=== PATIENT | male | born 1990 | race Caucasian/White ===

== ENCOUNTER 2024-10-28 11:52 | Emergency (ER) | payer SELFPAY ==
--- NOTE | ~2024-10-28 | CT_ITS ---
Non-contrast CT scan of the Abdomen and Pelvis Clinical indication: Abdominal pain Technique: 2.5 mm axial scans were obtained through the abdomen and pelvis without intravenous or or al contrast. Dose reduction technique was used on this scan by utilizing automated exposure control a nd iterative reconstruction technique. The dose-length product (DLP) was 792.76 mGy-cm. Findings: Images through the lung bases reveal no abnormalities. There is no evidence of renal or ureteral calculi. The kidneys and the ureters are nondilated. There is marked diffuse fatty infiltration of the liver. The spleen, pancreas, gallbladder, and adren als appear normal. There is no aortic aneurysm. There is no evidence of bowel obstruction. Images through the pelvis were performed. There is no evidence of ascites or lymphadenopathy. Urinary bladder unremarkable. No pelvic mass. Impression: No acute abnormality. Marked diffuse fatty infiltration of liver. Reviewed, dictated and finalized at [facility]. Impression: No acute abnormality. Marked diffuse fatty infiltration of liver.
--- NOTE | ~2024-10-28 | XR_ITS ---
Clinical Indication: Alcohol withdrawal, pain PA and lateral views of the chest: Comparison: None Findings: The lungs are clear, without evidence of focal consolidation or pleural effusion. Cardiome diastinal silhouette is within normal limits. Bones and soft tissues are unremarkable. Impression: Normal chest. Reviewed, dictated and finalized at [facility]. Impression: Normal chest.
[2024-10-28 11:53] VITALS: BP 156/110; PULSE 88; RESP 18; TEMP 36.7; O2SAT 97
--- NOTE | 2024-10-28 12:23 | ECG_ITS ---
Test Date: 2024-10-28 12:45:01 Measurements Intervals [place] Rate: 90 P: 26 VT: 138 QRS: 55 QRSD: 94 T: 31 QT: 347 QTc: 426 Interpretive Statements SINUS RHYTHM POSSIBLE LEFT ATRIAL ENLARGEMENT BASELINE ARTIFACT- I, II, III, AVR, AVL, AVF, V2-V6 BORDERLINE ECG No previous ECG available for comparison Electronically Signed On 10-28-2024 12:50:07 CDT by Caio Louis D.O.
--- NOTE | 2024-10-28 12:27 | ED_ITS ---
HPI - Abdominal Pain General Chief Complaint: Abdominal Pain Stated Complaint: dental pain Time Seen by Provider: 10/28/24 11:55 Source: patient and family Mode of arrival: ambulatory Limitations: no limitations History of Present Illness HPI narrative: Patient is a 34-year-old male with day 3 of no alcohol and concerned about his health and tremors that he was having yesterday. He is not wanting detox but he is wanting a medical workup for safety. His mother is present. He has weaned down from the alcohol over the past week and stopped 3 days ago. He is having abdominal pain. Some dental complaints as well. MD elicited complaint: abdominal pain Pertinent past history: other ( alcoholism) Onset (ago): day(s) ( 3) Pain Consistency: intermittent Location: diffuse Severity: moderate Pain scale (0-10): 5 Quality: cramping and sharp Radiation: none Migration to: no migration Exacerbating factors: nothing Relieving factors: nothing Context: confirms other ( patient is on day 3 of stopping alcohol and concern for his health and desired a workup at this time. He is having abdominal pains.) Associated symptoms: other ( Tremors at times and occasional flash of light with insomnia) Treatments prior to arrival: other ( none) Related Data Allergies Allergy/AdvReac Type Severity Reaction Status Date / Time No Known Allergies Allergy Verified 10/28/24 12:21 Review of Systems 2 Review of Systems: All systems reviewed & are unremarkable except as noted in HPI and below Constitutional: Constitutional: Reports no additional constitutional complaints Eyes: Eyes: Reports no additional eye complaints ENT: Reports system reviewed and no additional complaints, except as documented Cardiovascular: Cardiovascular: Reports no additional cardiovascular complaints Respiratory: Respiratory: Reports no additional respiratory complaints Gastrointestinal: Gastrointestinal: Reports no additional gastrointestinal complaints Genitourinary: Genitourinary: Reports no additional male genitourinary complaints Musculoskeletal: Musculoskeletal: Reports no additional musculoskeletal complaints Integumentary/Breasts: Skin/Breast: Reports system reviewed and no additional complaints, except as docu Neurologic: Reports system reviewed and no additional complaints, except as documented Psychiatric: Psychiatric: Reports no additional psychiatric complaints Endocrine: Endocrine: Reports no additional endocrine complaints Hematologic/Lymphatic: Hematologic/Lymphatic: Reports no additional hematologic/lymphatic complaints Allergic/Immunologic: Allergic/Immunologic: Reports no additional allergic/immunologic complaints Exam 2 Const: General: healthy appearing and no acute distress Nutritional Appearance: well nourished Orientation/consciousness: patient oriented x3 Limitations: no limitations Other: no signs of tremors or DTs at this time; no hallucinations; no suicide or homicide ideation; no seizures; patient is anxious HENMT: Head: normal to inspection Ears: external ears normal F eliza/Nose/Sinus: Normal external nose present Eyes: Conjunctivae: conjunctivae normal Pupils: Equal, round and reactive pupils present EOM: EOMs intact bilaterally Neck: Neck: normal visual inspection Chest: Chest palpation & inspection: normal inspection of the chest Resp: Effort & Inspection: normal respiratory effort and not labored A uscultation: clear to auscultation bilaterally and no crackles Cardio: Rate: regular rate Rhythm: regular rhythm Heart sounds: no murmurs GI: Inspection: non-distended GI Palp: Yes Soft to palpation, Yes Tenderness to palpation present (GI) ( diffuse), No Guarding due to palpation present (GI), No Rigid due to palpation, No Hernia present, No Palpable mass present and No Rebound tenderness present Auscultation: normal bowel sounds : General: Yes bladder normal to palpation Back/Spine/Pelvis: Back: no CVA tenderness Skin: General skin exam: normal color Rashes: no rashes Wounds: no wounds Neuro: General: patient oriented x3 Cranial nerves: Yes Nystagmus not present Speech: normal speech Gait exam (Neuro): Normal gait present O ther: A&O x4, fast negative, NIH 0, GCS 15, no signs of DTs Extrem: General: normal to inspection Psych: Mental Status: mental status grossly normal Affect: normal affect Attitude: cooperative Course Vital Signs Vital signs: Vital Signs Temperature 36.7 C 10/28/24 11:53 Pulse Rate 88 10/28/24 11:53 Respiratory Rate 18 10/28/24 11:53 Blood Pressure 156/110 H 10/28/24 11:53 Pulse Oximetry 97 10/28/24 11:53 Oxygen Delivery Room Air 10/28/24 11:53 Temperature 36.7 C 10/28/24 11:53 Pulse Rate 88 10/28/24 11:53 Respiratory Rate 18 10/28/24 11:53 Blood Pressure 156/110 H 10/28/24 11:53 Pulse Oximetry 97 10/28/24 11:53 Oxygen Delivery Room Air 10/28/24 11:53 MDM - Abdominal Pain MDM Narrative Medical decision making narrative: patient is a 34-year-old male with alcohol detox day 3 on his own and concerns for his general health with some abdominal pains. Will do a workup at this time for reassurance. I will give him Ativan for anxiety. Lab Data Attestation: I reviewed the patient's lab results. 10/28/24 12:47 10/28/24 12:47 Labs: Lab Results 10/28/24 10/28/24 Range/Units 12:26 12:47 WBC 7.7 (4.8-10.8) K/mm3 RBC 3.89 L (4.70-6.10) M/mm3 Hgb 15.1 (14.0-18.0) g/dL Hct 41.7 (40.0-54.0) % MCV 107.2 H (78.0-102.0) fL MCH 38.8 H (27.0-31.0) pg MCHC 36.2 H (32-36) g/dL RDW 13.1 (11.6-14.4) % Plt Count 178 (150-420) K/mm3 MPV 10.9 (8.7-11.0) fl Immature Gran % (Auto) 0.6 H (0.0-0.0) % Neut % (Auto) 66.5 (50.0-70.0) % Lymph % (Auto) 18.5 (18.0-42.0) % [place] % (Auto) 14.1 H (2.0-11.0) % Eos % (Auto) 0.0 L (1.0-6.0) % Baso % (Auto) 0.3 (0.0-1.0) % Lymph # (Auto) 1.43 (1.10-4.50) K/mm3 [place] # (Auto) 1.09 H (0.10-0.90) K/mm3 Eos # (Auto) 0.00 L (0.02-0.50) K/mm3 Baso # (Auto) 0.02 (0.00-0.10) K/mm3 Abs Immat Gran (auto) 0.05 H (0.00-0.00) K/mm3 Absolute Neuts (auto) 5.13 (1.70-7.20) K/mm3 Absolute Nucleated RBC 0.00 (0.00-0.00) K/mm3 Nucleated RBC % 0.0 (0-0.0) % Sodium 129 L (137-145) mmol/L Potassium 3.3 L (3.4-5.0) mmol/L Chloride 90 L (98-107) mmol/L Carbon Dioxide 25 (22-30) mmol/L Anion Gap 14 H (4-12) mmol/L BUN 7 L (9-20) mg/dL Creatinine 0.84 (0.7-1.3) mg/dL Estim Creat Clear Calc 119 ml/min Estimated GFR > 60 (59 - ) Glucose 143 H (65-110) mg/dL Calculated Osmolality 268 L (285-295) mOsm/kg Lactic Acid 1.6 (0.4-2.0) mmol/L Calcium 9.8 (8.4-10.2) mg/dL Magnesium 2.0 (1.6-2.3) mg/dL Total Bilirubin 9.4 H (0.2-1.3) mg/dL AST 302 H (17-59) U/L ALT 219 H (6-50) U/L Alkaline Phosphatase 135 H (38-126) U/L Troponin I < 0.012 (0.000-0.034) ng/mL Total Protein 8.6 H (6.3-8.2) g/dL Albumin 4.9 (3.5-5.1) g/dL Lipase 181 (23-300) U/L Urine Color Dark yellow (Yellow) Urine Appearance Clear (Clear) Urine pH 7.0 (5.0-8.0) Ur Specific [place] <= 1.005 L (1.010-1.020) Urine Protein Negative (Negative) Urine Glucose (UA) Negative (Negative) Urine Ketones 1+ H (Negative) Ur Blood (Man) Negative (Negative) Urine Nitrate Negative (Negative) Urine Bilirubin 2+ H (Negative) Urine Urobilinogen 4.0 H (0.2-1.0) mg/dL Leukocyte Esterase Rfl Negative (Negative) BEBETO/UL Urine RBC None seen (0-2) /hpf Urine WBC None seen (0-3) /hpf Urine Bacteria Trace (None) /hpf Urine Opiates Screen Negative (Negative) Urine Methadone Screen Negative (Negative) Ur Barbiturates Screen Negative (Negative) Ur Phencyclidine Scrn Negative (Negative) Ur Amphetamine Screen Negative (Negative) U Benzodiazepines Scrn Positive A (Negative) Urine Cocaine Screen Negative (Negative) U Cannabinoids Screen Positive A (Negative) Ethyl Alcohol < 10 (<10) mg/dL Imaging Data Attestation: I personally reviewed and interpreted this imaging study as follows: Radiologist's impression: ITS Impressions Abdomen/Pelvis CT 10/28/24 13:34 Impression: No acute abnormality. Marked diffuse fatty infiltration of liver. Chest X-Ray 10/28/24 13:35 Impression: Normal chest. ECG Data EKG #1: Attestation: I personally reviewed and interpreted this ECG as follows: ECG completion date: 10/28/24 ECG completion time: 12:51 normal rate, sinus rhythm, no ectopy, non-specific ST changes, normal QRS, normal QT, NL axis and no acute changes Discharge Plan Discharge Clinical Impression: Alcoholism, Abnormal transaminases Patient Disposition: Home Condition: Improved Instructions: Alcohol Withdrawal (DC), Alcohol Use Disorder (ED) Patient Language: [place] Prescriptions: New lorazepam [Ativan] 0.5 mg tablet 0.5 mg PO TID PRN (Reason: alcohol withdrawal) Qty: 20 0RF Follow-up/Referrals: UNKNOWN,DOCTOR [Non-Staff] - Time of Disposition: 13:43
[2024-10-28 12:38] LABS: Add Urine Microscopic? YES; Appearance Urine Clear (Clear); Bilirubin Urine 2+ (Negative); Blood Urine Negative (Negative); Color Urine Dark Yellow (Yellow); Glucose Urine UA Negative (Negative); Ketones Urine 1+ (Negative); Leukocyte Esterase Ur Negative LEU/UL (Negative); Nitrate Urine Negative (Negative); Protein Urine Negative (Negative); Specific Grav Ur <= 1.005 (1.010-1.020)
[2024-10-28] MEDS: LORazepam (*CRX) 1 MG TABLET PO (12:41)
[2024-10-28 12:54] LABS: Basophils Absolute Auto 0.02 K/mm3 (0.00-0.10); Basophils Percent Auto 0.3 % (0.0-1.0); Hematocrit 41.7 % (40.0-54.0); Hemoglobin 15.1 g/dL (14.0-18.0); Immature Granulocyte Absolute 0.05 K/mm3 (0.00-0.00); Immature Granulocyte Percent A 0.6 % (0.0-0.0); Lymphocytes Absolute Auto 1.43 K/mm3 (1.10-4.50); Lymphocytes Percent Auto 18.5 % (18.0-42.0); Mean Corpuscular HGB Conc 36.2 g/dL (32-36); Mean Corpuscular Hemoglobin 38.8 pg (27.0-31.0); Mean Corpuscular Volume 107.2 fL (78.0-102.0); Mean Platelet Volume 10.9 fl (8.7-11.0); Monocytes Absolute Auto 1.09 K/mm3 (0.10-0.90); Monocytes Percent Auto 14.1 % (2.0-11.0); Neutrophils Absolute Auto 5.13 K/mm3 (1.70-7.20); Neutrophils Percent Auto 66.5 % (50.0-70.0); Platelet Count Result 178 K/mm3 (150-420); Red Blood Count 3.89 M/mm3 (4.70-6.10); Red Cell Distribution Width 13.1 % (11.6-14.4); White Blood Count 7.7 K/mm3 (4.8-10.8)
--- OUTSIDE RECORDS SUMMARY | 2024-10-28 13:01 | XMS_ITS | Clinical Summary ---
Author Organization [facility] [place] Address [address] [place] [address] Phone Care Team Providers Care Warehouse Record Clerk Name Role Phone Provider, None Primary Care Provider Unavailabl e Allergies No known active allergies Medications No known medications Active Problems No known active problems Encounters Date Type Department Care Team Description 10/10/2024 [facility] [address] [place] [id number] Navigator, Digital [facility] Encounter for health-related screening (Primary Dx) from Last 3 Months Immunizations Immunization Administration Dates Next Due DTAP VACCINE 01/02/1996, 2,04/11/1991,1990,1990 Hepatitis A, Pediatric, Unsp ecified Formulation 04/09/2007 Hepatitis B Vaccine, Pediatric/adolescent 02/16/2000,02/21/1999,10/01/1998 Hib Vaccine,unspecified Formulation 12/20,04/11/1991,02/11/1991,1990 Inactivated Polio Vaccine 01/02/1996,,02/11/1991,1990 MMR Vaccine 01/02/1996,01/12/1992 TD VACCINE 01/02/2005 Social History Tobacco Use Types Packs/Day Years Used Date Smoking Tobacco: Never Smokeless Tobacco: Never Tobacco Cessation:Counseling Given: Not Answered Alcohol Use Standard Drinks/Week Comments Not Currently 0 (1 standard drink = 0.6 oz pur e alcohol) Sex and Gender Information Value Date Recorded Sex Assigned at Not on file Legal Sex Male 3:27 PM CDT Gender Identity Not on file Sexual Orientation Not on file Last Filed Vital Signs Vital Sign Reading Time Taken Comments Blood Pressure 130/89 10/10/2024 4:57 PM CDT Pulse 79 10/10/2024 4:57 PM CDT Temperature 36.7 C (98 F) 12/26/2023 4:05 PM CDT Respiratory Rate 18 12/26/2023 4:05 PM CDT Oxygen Saturation 93% 10/10/2024 4:57 PM CDT Inhaled Oxygen Concentration - - Weight 95.3 kg (210 lb) 12/26/2023 4:05 PM CDT Height - - Body Mass Index - - Plan of Treatment Health Maintenance Due Date Last Done Comments Hepatitis C Virus (HCV) Screening 1990 DTaP/Tdap/Td Immunization (6 - Tdap) 01/03/2005 01/02/2005, 01/02/1996, 04/19/1992, Additional history exists SARS-COV-2 Immunization ( season) 2024 Influenza Immunization (Season Ended) 2025 Respiratory Syncytial Virus (RSV) Immunization (Adult) (1 - 1-dose 75+ series) 2065 Hepatitis B Immunization Completed 000, 02/21/1999, 10/01/1998 Human Papillomavirus (HPV) Immunization Aged Out No longer eligible based on patient's age to complete this topic Meningococcal Immunization (ACWY) Aged Out No longer eligible based on patient's age to complete this topic Pneumococcal Immunization Combined Aged Out No longer eligible based on patient's age to complete this topic Rotavirus Immunization Aged Out No lo nger eligible based on patient's age to complete this topic Procedures Procedure Name Priority Date/Time Associated Diagnosis Comments POCT GLUCOSE ONCALL Routine 10/10/2024 2 :45 PM CDT Encounter for health-related screening POCT CHOLESTEROL ONCALL Routine 10/10/2024 2:45 PM CDT Encounter for health-related screening from Last 3 Months Results * (ABNORMAL) POCT GLUCOSE ONCALL (10/10/2024 2:45 PM CDT) GLUCOSE 121(A) 70 - 99 mg/dL Comment:Non Fasting 10/10/2024 2:45 PM CDT Teo Echevarria DO POINT OF CARE TESTING ([facility]OUSSARD) Final Result * POCT CHOLESTEROL ONCALL (10/10/2024 2:45 PM CDT) Total Cholesterol 171 0 - 200 mg/dL Comment:Non Fasting 10/10/2024 2:45 PM CDT Teo John Swathi DO POINT OF CARE TESTING ([facility]OUSS[facility]) Final Result from Last 3 Months Insurance [facility] Care Teams Warehouse Record Clerk Relationship Specialty Start Date End Date Provider, None [place] PCP - General 12/26/23
[2024-10-28 13:02] LABS: Bacteria Urine Trace /hpf; RBC Urine None seen /hpf (0-2); WBC Urine None seen /hpf (0-3)
[2024-10-28 13:07] LABS: Alanine Aminotransferase 219 U/L (6-50); Albumin Level 4.9 g/dL (3.5-5.1); Alkaline Phosphatase 135 U/L (38-126); Anion Gap 14 mmol/L (4-12); Aspartate Amino Transferase 302 U/L (17-59); Bilirubin,Total 9.4 mg/dL (0.2-1.3); Blood Urea Nitrogen 7 mg/dL (9-20); Calcium 9.8 mg/dL (8.4-10.2); Carbon Dioxide 25 mmol/L (22-30); Chloride 90 mmol/L (98-107); Estimated CRCL calculation 119 ml/min; Estimated Glomerular Filt Rate > 60; Glucose 143 mg/dL (65-110); Osmolality Calculated 268 mOsm/kg (285-295); Potassium 3.3 mmol/L (3.4-5.0); Sodium 129 mmol/L (137-145); Total Protein 8.6 g/dL (6.3-8.2)
[2024-10-28 13:08] LABS: Amphetamine Screen Urine Negative (Negative); Barbiturate Screen Urine Negative (Negative); Benzodiazepines Screen Urine Positive (Negative); Cannabinoid Screen Urine Positive (Negative); Cocaine Screen Urine Negative (Negative); Methadone Screen Urine Negative (Negative); Opiate Screen Urine Negative (Negative); Phencyclidine Screen Urine Negative (Negative)
[2024-10-28 13:08] LABS: Ethanol < 10 mg/dL (<10); Lactic Acid Reflex 1.6 mmol/L (0.4-2.0)
[2024-10-28 13:23] LABS: Lipase 181 U/L (23-300); Troponin I < 0.012 ng/mL (0.000-0.034)
[2024-10-28 13:53] VITALS: BP 138/109; PULSE 89; RESP 16; TEMP 37; O2SAT 99
[2024-10-28] MEDS: POTASSIUM CHLORIDE 20 MEQ ER TABLET PO (14:05)
== END 2024-10-28 14:12 | disposition home or self-care (01) ==
PROVIDERS: Emergency Provider Emergency Medicine; PCP Internal Medicine
DX: F10.20 Alcohol dependence, uncomplicated (principal); R74.01 Elevation of levels of liver transaminase levels; Y90.0 Blood alcohol level of less than 20 mg/100 ml
CPT/HCPCS: 36415; 71046; 74176; 80053; 80307; 81001; 82077; 83605; 83690; 83735; 84484; 85025; 93005; 99284; A9270